=== PATIENT | female | born 1960 | race Caucasian/White ===

== ENCOUNTER 2021-01-30 12:42 | Inpatient (IN) | payer OTHER ==
[~2021-01-30] VITALS: Ht 162.6 cm; Wt 70.3 kg
[2021-01-30 14:35] LABS: HEMOGLOBIN 11.8 gm/dl (12.3-15.3); RED BLOOD COUNT 3.86 M/UL (4.00-5.10); WHITE BLOOD COUNT 12.5 K/UL (4.5-11.0)
[2021-01-30 14:59] LABS: BUN/CREATININE RATIO 10 (0-10)
[2021-01-30] MEDS ORDERED: CITRUCEL500 MG PO (18:08)
[2021-01-30] MEDS ORDERED: CALTRATE 600 +1 EAC1 PO (18:08)
[2021-01-30] MEDS ORDERED: PROBIOTIC FORM1 EACH PO (18:09)
[2021-01-30] MEDS ORDERED: ASPIRIN EC81 MG PO (18:09)
[2021-01-30] MEDS ORDERED: AMITIZA8 MCG PO (18:10)
[2021-01-30] MEDS ORDERED: OMEPRAZOLE20 MG PO (18:10)
[2021-01-30] MEDS ORDERED: ULTRAM50 MG PO (18:10)
[2021-01-30] MEDS ORDERED: MOBIC15 MG PO (18:11)
[2021-01-30] MEDS ORDERED: CYANOCOBAL1000 MCG/1 INJ (18:11)
[2021-01-30] MEDS ORDERED: ZOLOFT25 MG PO (18:12)
[2021-01-30] MEDS ORDERED: DAILY MULTIPLE1 EAC1 PO (18:12)
[2021-01-31 03:11] LABS: HEMOGLOBIN 10.7 gm/dl (12.3-15.3); RED BLOOD COUNT 3.59 M/UL (4.00-5.10); WHITE BLOOD COUNT 9.7 K/UL (4.5-11.0)
[2021-01-31 03:37] LABS: BUN/CREATININE RATIO 14 (0-10)
[2021-02-01 08:06] LABS: BUN/CREATININE RATIO 10 (0-10)
--- NOTE | 2021-02-01 08:17 | NUR ---
240ml's of gastrographin administered per ng-tube
[2021-02-01 16:14] LABS: BUN/CREATININE RATIO 10 (0-10)
[2021-02-02 08:17] LABS: BUN/CREATININE RATIO 10 (0-10)
[2021-02-02 14:44] LABS: BUN/CREATININE RATIO 7 (0-10)
== END 2021-02-02 18:45 | disposition home or self-care (01) | DRG 389 ==
LOC: ER1 12:42 → CDU 16:10 → MED SURG 4 16:10
PROVIDERS: Physician Assistant; ADMIT Internal Medicine
PROC: 0D9670Z Drainage of Stomach with Drainage Device, Via Natural or Artificial Opening (ICD-10-PCS; principal; 2021-01-31)
DX: K56.600 Partial intestinal obstruction, unspecified as to cause (principal); E87.2 Acidosis; E87.6 Hypokalemia; K58.9 Irritable bowel syndrome, unspecified; K21.9 Gastro-esophageal reflux disease without esophagitis; Z20.822 Contact with and (suspected) exposure to COVID-19; F41.9 Anxiety disorder, unspecified; E83.42 Hypomagnesemia; E86.0 Dehydration; D69.6 Thrombocytopenia, unspecified; D72.829 Elevated white blood cell count, unspecified; M79.7 Fibromyalgia; D64.9 Anemia, unspecified; R73.03 Prediabetes; Z79.82 Long term (current) use of aspirin; Z79.899 Other long term (current) drug therapy; Z90.49 Acquired absence of other specified parts of digestive tract; Z83.3 Family history of diabetes mellitus; Z82.49 Family history of ischemic heart disease and other diseases of the circulatory system; Z80.1 Family history of malignant neoplasm of trachea, bronchus and lung
CPT/HCPCS: 36415; 71045; 74019; 74022; 80048; 80053; 81001; 83735; 84132; 85025; 90471; 93005; 96365; 96375; 96376; 99284; C9113; G0378; J1885; J2270; J3480; J7030; Q9963; U0002